=== PATIENT | female | born 1960 | race Caucasian/White ===

== ENCOUNTER 2017-01-18 04:03 | Emergency (ER) | payer OTHER ==
[2017-01-18] MEDS ORDERED: HYDROCODONE/ACETAMINOPHEN 5/325MG TABLET ONE (05:42)
--- NOTE | 2017-01-18 08:18 | RAD ---
Exam: Complete right shoulder COMPARISON: CT chest 04/20/2015 INDICATION: Woke up this morning with shoulder pain. FINDINGS: Internal and external rotated AP and transscapular y views of the right shoulder were obtained. Overall normal bone mineralization. Alignment is within normal limits. Mild to moderate degenerative changes are present within the acromioclavicular joint. No fractures identified. Small focus of soft tissue desiccation is present adjacent to the greater tuberosity which may reflect calcific tendinosis. There is also an additional focus of soft tissue calcification which projects anterior to the coracoid process on the transscapular y view. Visualized right hemithorax within normal limits. IMPRESSION: No acute osseous abnormality in the right shoulder. Mild to moderate degenerative changes in the right acromioclavicular joint and calcific tendinosis are appreciated.
== END 2017-01-18 05:56 | disposition home or self-care (01) ==
LOC: ED 04:03
DX: M25.511 Pain in right shoulder (principal); R10.31 Right lower quadrant pain; I50.9 Heart failure, unspecified; J44.9 Chronic obstructive pulmonary disease, unspecified; E11.9 Type 2 diabetes mellitus without complications; Z79.4 Long term (current) use of insulin; Z86.73 Personal history of transient ischemic attack (TIA), and cerebral infarction without residual deficits; Z87.891 Personal history of nicotine dependence
CPT/HCPCS: 73030; 99283 ×2; A9270